=== PATIENT | male | born 1965 | race Caucasian/White ===

== ENCOUNTER 2025-03-17 01:14 | Emergency (ER) | payer MEDICAID, SELFPAY ==
--- NOTE | 2025-03-17 01:23 | EKG12_ITS ---
Test Reason : CP Blood Pressure : */* mmHG Vent. Rate : 96 BPM Atrial Rate : 96 BPM P-R Int : 182 ms QRS Dur : 98 ms QT Int : 378 ms P-R-T Axes : 63 18 39 degrees QTcB Int : 477 ms Sinus rhythm with Premature atrial complexes Otherwise normal ECG Confirmed by GENA VICTORIA, HILARIO ([id number]), newspaper editor BAY BALTAZAR ([id number]) on 03/22/2025 11:04:37 AM Referred By: GERALDINE Confirmed By: HILARIO AVERY MD
--- NOTE | 2025-03-17 02:10 | RAD_ITS ---
EXAM: Chest radiograph. One view. CLINICAL HISTORY: Chest pain. COMPARISON: None. TECHNIQUE: One view. FINDINGS: EKG electrodes are seen. The heart size upper limits of normal. Atherosclerotic calcification of the aortic arch. No acute infiltrate is seen. Healed right rib fractures. RAD/Chest 1 View (Portable) IMPRESSION: No acute abnormality is seen. . Reading Location: [facility]
--- NOTE | 2025-03-17 06:34 | CT_ITS ---
PROCEDURE: CTA CHST, ABD, PEL W AND/OR WO 03/17/2025 REASON FOR EXAM: D-DIMER TECHNIQUE: CTA CHST, ABD, PEL W AND/OR WO coronal and Sagittal reconstruction series were provided. One or more dose reduction techniques were used (e.g., Automated exposure control, adjustment of the mA and/or kV according to patient size, use of iterative reconstruction technique. CONTRAST: Isovue 370 VOLUME: 100 mL RADIATION DOSE SUMMARY: CTDlvol: 14.45 mGy DLP: 755.44 mGycm COMPARISON: None FINDINGS: CHEST: Lines and tubes: None Mediastinum: Unremarkable Heart: Coronary artery calcification. Thoracic Aorta: No thoracic aortic aneurysm or dissection. Atherosclerotic. Lungs and Airways: No focal infiltrate. Pleura: No pleural effusion. Bones: Degenerative changes of the spine. Other: Findings suggestive of healed posterior rib fractures of the right 7th 8th and 9th ribs.. Small sliding hiatal hernia. Fluid-filled esophagus. ABDOMEN AND PELVIS: Liver: Unremarkable. Gallbladder: Unremarkable Spleen: Calcified splenic granulomas. Pancreas: Normal size without evidence of mass surrounding inflammation or ductal dilation. Adrenals: Unremarkable Kidneys: Unremarkable Bladder: Diffuse urinary bladder wall thickening. Cystitis should be ruled out. The prostate is not enlarged. Central prostatic calcification. Bowel: Fecal material is seen in the rectum and throughout the colon. Diffuse thickening of the gastric wall. Vasculature: Mild diffuse atherosclerotic calcifications are noted. Peritoneum / Retroperitoneum: Unremarkable Bones: Degenerative changes of the spine. CT/CTA Chst, Abd, Pel W and/or WO IMPRESSION: No evidence of pulmonary embolism. Coronary artery calcification. Hiatal hernia stomach. Reading Location: [id number]
[2025-03-17 07:00] LABS: Alcohol, Blood (Medical)-Serum < 10.1 mg/dL (<=10.0)
[2025-03-17 07:27] LABS: Hemoglobin 10.6 g/dL (13.0-16.5); Red Blood Count 3.82 M/mm3 (4.6-6.2); White Blood Count 6.8 K/mm3 (4.4-11.0)
[2025-03-17 07:28] LABS: Hematocrit 32.3 % (40-54); Mean Corp Hgb Conc 32.8 g/dL (32-36); Mean Corpuscular Hgb 27.7 pg (27.0-32.0); Mean Corpuscular Volume 84.6 fL (80-94); Mean Platelet Vol. 9.7 fl (6.2-12.0); Platelet Count 278 K/mm3 (150-450); RBC Distribution Width CV 15.2 % (11.6-14.6); RBC Distribution Width SD 46.4 fl (35.1-43.9)
[2025-03-17 08:42] LABS: Amphetamine Urine PRESUMPTIVE POSITIVE (<1000 ng/mL); Barbiturate Urine NEGATIVE (< 200 ng/mL); Benzodiazepine Urine NEGATIVE (< 200 ng/mL); Buprenorphine Urine NEGATIVE (< 200 ng/mL); Cocaine Urine NEGATIVE (< 300 ng/mL); Fentanyl, Urine NEGATIVE; Methadone Urine NEGATIVE (< 300 ng/mL); Opiates Urine NEGATIVE (< 300 ng/mL); Oxycodone, Urine NEGATIVE (< 100 ng/mL); PCP Urine NEGATIVE (< 25 ng/mL); THC Urine NEGATIVE (< 50 ng/mL)
[2025-03-17 08:42] LABS: ALB/GLOB Ratio 1.5 RATIO (0.9-2.4); AST(SGOT) 17 U/L (<=37); Alanine Aminotransfer ALT/SGPT 7 U/L (<=46); Alkaline Phosphatase 61 U/L (40-129); Anion Gap 16 (5-15); BUN 15 mg/dL (4-19); BUN/Creat Ratio 11.7 RATIO (10-20); Calcium,Total 9.4 mg/dL (7.6-11.0); Carbon Dioxide 19.2 mmol/L (21.0-32.0); Chloride 104 mmol/L (98-108); Creatinine, Serum 1.27 mg/dL (0.70-1.20); EST Glomerular Filtration Rate 65 (>60); Globulin 2.7 g/dL (2.2-4.2); Glucose 143 mg/dL (70-99); Lipase 32 U/L (13-75); Potassium 3.5 mmol/L (3.3-5.1); Protein, Total 6.7 g/dL (5.9-8.4); Sodium Level 138 mmol/L (133-145); Total Bilirubin 0.42 mg/dL (0.00-1.30); Troponin T High Sensitivity 20 ng/L (<=22)
--- NOTE | 2025-03-20 04:10 | EDS_ITS ---
HPI History of Present Illness Informant: patient and EMS Narrative Narrative: Patient is a 59-year-old male with past medical history of polysubstance abuse. He states this evening he smoked methamphetamines and after doing so he developed chest discomfort. He states he was concerned he could be having an abnormal cardiac rhythm or cardiac event and therefore called EMS to bring him in for evaluation. Patient states he also had a few drinks of alcohol this evening but denies any other illicit drug use other than the methamphetamine. PFSH PFSH Social History Smoking Status: Never smoker ROS ROS ED Constitutional Constitutional ED: Denies chills or fever(s) Eyes Eyes: Denies change in vision ENT ENT ED: Denies sore throat Cardiovascular Cardiovascular: Reports chest pain, palpitations and racing heartbeat Respiratory/Chest Respiratory/Chest: Reports cough; Denies dyspnea Gastrointestinal Gastrointestinal: Denies abdominal pain, diarrhea, nausea or vomiting Musculoskeletal Musculoskeletal: Denies myalgias Integumentary Denies rash Neurologic Neurologic: Denies headache(s) Hematologic/Lymphatic Hematologic/Lymphatic: Denies easy bleeding or easy bruising Allergic/Immunologic Allergic/Immunologic ED: Denies mouth swelling or tongue swelling EXAM Physical Exam Const Positive well nourished and well developed General Appearance ED: well developed; Negative for pallor HEENT HEENT Narrative: Normocephalic atraumatic No tongue or lip swelling no oral lesions no airway edema or compromise Eyes PERRL and EOMs intact bilaterally General Eye ED: Negative for scleral icterus Neck supple and no JVD Neck Narrative: No nuchal rigidity or meningeal signs noted Resp normal respiratory effort and clear to auscultation bilaterally Resp Narrative: Breath sounds are diminished throughout with faint rhonchi noted in the bilateral lower lobes however no nasal flaring retractions tachypnea or accessory muscle use Cardio regular rhythm Rate: tachycardic and other Other Details: Slightly tachycardic rate with regular rhythm Radial and carotid pulses are equal and symmetric GI non-tender, non-distended and no masses GI Narrative: Abdomen is soft nontender and nondistended with hypoactive bowel sounds No voluntary guarding or rigidity or pulsatile mass Auscultation: hypoactive bowel sounds Palpation: soft Extremity normal to inspection Extremity Narrative: No asymmetric edema no pitting edema negative Homans' sign bilaterally Neuro oriented x3, CN's II-XII intact bilaterally and no sensory deficits noted Sensorium / Orientation: alert Motor Exam: strength 5/5 throughout Psych mental status grossly normal Skin no rashes or lesions noted General Skin Exam: Negative for jaundice or pallor MDM MDM MDM Narrative Medical decision making narrative: Patient arrived to the ER complaining of chest discomfort after smoking methamphetamine. In order to ensure there has not been polysubstance use leading to vasoconstriction and therefore acute coronary syndrome basic labs are obtained. Because of the mild tachycardia a D-dimer was ordered as well with concern for potential PE or dissection causing his chest discomfort. In order to ensure there is no lung pathology such as pneumonia or pneumothorax a chest x-ray was ordered. Chest x-ray revealed no acute findings. However the patient's D-dimer was slightly elevated at 0.7 and therefore CTA was obtained. This revealed no signs of PE infection or dissection. The patient's troponin was normal as well going against ACS. Therefore at this time as overall workup reveals no signs of infection lung pathology such as pneumonia pneumothorax dissection or PE and troponin is flat indicating there is no true cardiac i schemia there is no need for further intervention in the ER and the patient is otherwise safe for discharge. History & Record Review Discussion w/independent historian: EMS personnel and Patient Radiography Diagnostic Testing: Clinical Impression(s) from Imaging Studies Chest X-Ray 03/17/25 02:10 IMPRESSION: No acute abnormality is seen. . Reading Location: [id number] Chest/Abdomen/Pelvis CTA 03/17/25 06:34 IMPRESSION: No evidence of pulmonary embolism. Coronary artery calcification. Hiatal hernia stomach. Reading Location: [facility] Chest x-ray is interpreted by the emergency medicine physician reveals no acute infiltrate pneumothorax or pleural effusion Discharge Plan Triage ED Provider: David Gustafson Dx/Rx/DC Orders Clinical Impression: Nonspecific chest pain, Methamphetamine abuse Primary Care Provider: Care Physician,No Primary Referrals: Care Physician,No Primary [Primary Care Provider] - Print Language: Estonian Disposition Disposition: Home, Self Care Discharge Date/Time: 03/17/25 04:58
== END 2025-03-17 04:58 | disposition home or self-care (01) ==
PROVIDERS: Emergency Provider Emergency Medicine; Visit Provider Emergency Medicine
DX: R07.89 Other chest pain (principal); F15.10 Other stimulant abuse, uncomplicated
CPT/HCPCS: 71045; 71275; 74174; 80053; 80307; 82077; 83690; 84484; 85027; 85379; 93005; Q9967; A4216; J2405